=== PATIENT | male | born 1990 | race Caucasian/White ===

== ENCOUNTER 2019-09-22 03:42 | Emergency (ER) | payer SELFPAY ==
[~2019-09-22] VITALS: Ht 170.2 cm; Wt 74.8 kg
[2019-09-22 03:47] VITALS: BP 137/104
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
--- NOTE | 2019-09-22 04:01 | NUR ---
PATIENT BIB [facility]ICE DEPT. PATIENT EXAMINED BY DR. SHORT. PATIENT MEDICALLY CLEARED AND RELEASED IN CUSTODY IN STABLE CONDITION. ORIGINAL PRE-BOOK FORM GIVEN TO OFFICER MYRNA.
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
[2019-09-22 04:02] VITALS: BP 137/104
== END 2019-09-22 04:02 ==
LOC: MED 03:42
DX: F10.10 Alcohol abuse, uncomplicated (principal); Z02.89 Encounter for other administrative examinations
CPT/HCPCS: 99283